=== PATIENT | male | born 1975 | race Caucasian/White ===

== ENCOUNTER 2017-08-29 10:46 | Emergency (ER) | payer BC ==
[2017-08-29 10:51] VITALS: BP 126/80; PULSE 70; TEMP 98.3; BMI 25.9
--- NOTE | 2017-08-29 11:38 | PDOC ---
*Physical Exam - Vital Signs Last Vital Signs Temp Pulse Resp BP Pulse Ox 98.3 F 70 19 126/80 100 08/29/17 10:48 08/29/17 10:48 08/29/17 10:48 08/29/17 10:48 08/29/17 10:48 - Physical Exam General Appearance: Yes: Nourished HEENT: positive: EOMI, CODY *DC/Admit/Observation/Transfer Diagnosis at time of Disposition: Corneal abrasion, right Qualifiers: Encounter type: initial encounter Qualified Code(s): S05.01XA - Injury of conjunctiva and corneal abrasion without foreign body, right eye, initial encounter - Discharge Dispostion Disposition: HOME Condition at time of disposition: Stable Decision to Admit order: No - Prescriptions Prescriptions: Sulfacetamide Sodium 10% [Bleph-10] 1 drop AD Q6H 7 Days #1 bottle - Referrals Referrals: Arelis Monsivais MD [Primary Care Provider] - - Patient Instructions Printed Discharge Instructions: Corneal Abrasion Additional Instructions: Do not rub eyes use eye drops as directed return to the ER if worsening symptoms of redness, blurred vision occurs. Otherwise follow up with your primary care doctor - Post Discharge Activity
--- NOTE | 2017-08-29 11:43 | PDOC ---
History of Present Illness - General Chief Complaint: Eye Problem Stated Complaint: EYE PROBLEM Time Seen by Provider: 08/29/17 11:13 History Source: Patient Exam Limitations: No Limitations (R eye redness and irritation s/p wood in eye while gardenin today) Past History - Travel Traveled outside of the country in the last 30 days: No Close contact w/someone who was outside of country & ill: No - Past Medical History Allergies/Adverse Reactions: Allergies Allergy/AdvReac Type Severity Reaction Status Date / Time No Known Allergies Allergy Verified 08/29/17 10:48 Home Medications: Ambulatory Orders Sulfacetamide Sodium 10% [Bleph-10] 1 drop AD Q6H 7 Days #1 bottle 08/29/17 COPD: No Other medical history: DENIES. - Suicide/Smoking/Psychosocial Hx Smoking History: Never smoked Review of Systems - Review of Systems Is the patient limited [place] proficient: No Constitutional: No: Chills, Fever HEENTM: Yes: Tearing. No: Eye Pain, Blurred Vision, Double Vision, Cataracts ( denies contact deena use) *Physical Exam - Vital Signs Last Vital Signs Temp Pulse Resp BP Pulse Ox 98.3 F 70 19 126/80 100 08/29/17 10:48 08/29/17 10:48 08/29/17 10:48 08/29/17 10:48 08/29/17 10:48 - Physical Exam General Appearance: Yes: Nourished HEENT: positive: EOMI (R eye:injected conjunctiva, no FB seen. ), CODY, Normal ENT Inspection. negative: Photophobia, Rhinorrhea Respiratory/Chest: positive: Lungs Clear, Normal Breath Sounds Cardiovascular: positive: Regular Rhythm, Regular Rate, S1, S2 Medical Decision Making - Medical Decision Making 08/29/17 11:41 42y/o M with no prior med hx, p/w R eye redness and irritation after a piece of wood fell in eye while gardening 1hr [employer] today, pt rinsed eye when it occurred. pt denies blurred vision and contact lens use visual acuity 20/20 w/o correction b/l no fluoresce strips available in ED, no FB seen on exam will tx for presumed corneal abrasion Rx for bleph 10 gtt *DC/Admit/Observation/Transfer Diagnosis at time of Disposition: Corneal abrasion, right Qualifiers: Encounter type: initial encounter Qualified Code(s): S05.01XA - Injury of conjunctiva and corneal abrasion without foreign body, right eye, initial encounter - Discharge Dispostion Disposition: HOME Condition at time of disposition: Stable - Prescriptions Prescriptions: Sulfacetamide Sodium 10% [Bleph-10] 1 drop AD Q6H 7 Days #1 bottle - Referrals Referrals: Arelis Monsivais MD [Primary Care Provider] - - Patient Instructions Printed Discharge Instructions: Corneal Abrasion Additional Instructions: Do not rub eyes use eye drops as directed return to the ER if worsening symptoms of redness, blurred vision occurs. Otherwise follow up with your primary care doctor - Post Discharge Activity
== END 2017-08-29 11:41 | disposition home or self-care (01) ==
LOC: JERFT 10:46
PROC: 4A07X0Z Measurement of Visual Acuity, External Approach (ICD-10-PCS; principal; 2017-08-29)
DX: S05.01XA Injury of conjunctiva and corneal abrasion without foreign body, right eye, initial encounter (principal); W22.8XXA Striking against or struck by other objects, initial encounter; Y93.H2 Activity, gardening and landscaping; Y92.017 Garden or yard in single-family (private) house as the place of occurrence of the external cause; Y99.8 Other external cause status
CPT/HCPCS: 99281-25

== ENCOUNTER 2019-11-12 09:27 | Emergency (ER) | payer BC ==
[2019-11-12 09:32] VITALS: BP 115/73; PULSE 73; TEMP 98.3; BMI 25.9
--- NOTE | 2019-11-12 09:39 | PDOC ---
History of Present Illness - General Chief Complaint: Pain, Acute Stated Complaint: LEFT WRIST PAIN Time Seen by Provider: 11/12/19 09:36 - History of Present Illness Initial Comments: 11/12/19 10:18 Chief complaint: Pain left wrist HPI: Patient injured his left wrist yesterday when operating a power tool. The tool stretched and rotated his left wrist, resulting in pain along the ulnar aspect, over the ulnar styloid, and swelling. Denies distal numbness, tingling, or weakness. Denies any other injuries including injuries to the hand, digits, forearm, or elbow. Review of systems: As noted above, otherwise reviewed and negative Past medical history: Reviewed and noncontributory Social/family history reviewed and noncontributory Physical exam: Alert and oriented well-developed well-nourished mild distress due to left wrist pain, cooperative Afebrile, vital signs normal Left wrist: Mild diffuse swelling, no deformity. Tenderness over the ulnar aspect of the wrist and ulnar styloid, mild. Pulses full. No distal sensory or motor deficits. Capillary refill intact. No evidence of injury to the digits, hand, forearm, or elbow. Impression: Sprain, rule out fracture Plan: X-ray and further orthopedic management depending on results Past History - Medical History Allergies/Adverse Reactions: Allergies Allergy/AdvReac Type Severity Reaction Status Date / Time No Known Allergies Allergy Verified 11/12/19 09:28 Home Medications: Ambulatory Orders NK [No Known Home Medication] 11/12/19 COPD: No Other medical history: PT DENIES - Psycho-Social/Smoking History Smoking History: Never smoked - Substance Abuse Hx (Audit-C & DAST Scrn) How often the patient has a drink containing alcohol: Monthly or less Number of drinks the patient has on a typical day: 1 or 2 How often the patient has six or more drinks on one occasion: Never Score: In Men: 4 or > Positive; In Women: 3 or > Positive: 1 Screen Result (Pos requires Nsg. Audit-10AR): Negative In the last yr the pt used illegal drug/Rx for NonMed reason: No Score: Yes response is considered Positive: 0 Screen Result (Positive result requires Nsg. DAST-10): Negative *Physical Exam - Vital Signs Last Vital Signs Temp Pulse Resp BP Pulse Ox 98.3 F 73 16 115/73 99 11/12/19 09:28 11/12/19 09:28 11/12/19 09:28 11/12/19 09:28 11/12/19 09:28 Medical Decision Making - Medical Decision Making 11/12/19 10:21 X-ray was reviewed. There appears to be a 2 to 3 mm avulsion fracture present in the space between the ulnar styloid and the carpal bones. There is probably an associated tendon injury. No other fractures or dislocations are noted. Velcro splint applied. Patient more comfortable. No distal numbness, tingling, or pain in the digits after application. Good capillary refill. Instructed on use of the splint, rest, ice, elevation, and ibuprofen. To follow-up with Dr. Ramirez in 1 week. Discharge - Discharge Information Problems reviewed: Yes Clinical Impression/Diagnosis: Avulsion fracture of left wrist Condition: Improved Disposition: HOME - Admission No - Follow up/Referral Referrals: Chris Ramirez MD [Staff Physician] - 1 week - Patient Discharge Instructions Patient Printed Discharge Instructions: DI for Wrist Fracture Additional Instructions: Rest, ice, ibuprofen, splint as directed. Follow-up with orthopedist in 1 week for further treatment as directed. - Post Discharge Activity
== END 2019-11-12 10:18 | disposition home or self-care (01) ==
LOC: FER 09:27
DX: S62.92XA Unspecified fracture of left hand, initial encounter for closed fracture (principal); X50.9XXA Other and unspecified overexertion or strenuous movements or postures, initial encounter
CPT/HCPCS: 73110-TC-LT-FY; 99283-25